=== PATIENT | male | born 1950 | race Caucasian/White ===

== ENCOUNTER 2018-08-12 07:41 | Emergency (ER) | payer MEDICARE ==
[2018-08-12 08:19] LABS: BASOPHILS % (AUTO) 0.3 % (0.0-5.0); EOSINOPHILS % (AUTO) 1.2 % (0.0-8.0); HEMATOCRIT 46.6 % (42-54); LYMPHOCYTES % (AUTO) 29.9 % (21.0-51.0); MEAN CORPUSCULAR HEMOGLOBIN 30.6 pg (27.0-33.0); MEAN CORPUSCULAR HGB CONC 34.5 g/dL (32.0-36.0); MEAN CORPUSCULAR VOLUME 88.6 fL (79-99); MONOCYTES % (AUTO) 6.1 % (3.0-13.0); NEUTROPHILS % (AUTO) 62.5 % (40.0-77.0); NUCLEATED RED BLOOD CELLS 0.1 % (0.0-0.19); PLATELET COUNT (AUTO) 251 K/uL (130-400); RED BLOOD CELL COUNT(AUTO) 5.26 MIL/uL (4.50-6.20); RED CELL DISTRIBUTION WIDTH 13.3 % (11.0-15.5); WHITE BLOOD COUNT (AUTO) 6.5 K/uL (4.8-10.8)
[2018-08-12 08:21] LABS: POTASSIUM 3.8 mmol/L (3.5-5.1)
[2018-08-12 08:28] LABS: ALBUMIN 3.9 g/dL (3.5-5.0); BILIRUBIN,DIRECT 0.2 mg/dL (0.0-0.3); BILIRUBIN,TOTAL 0.7 mg/dL (0.2-1.0); INR 0.98 (0.85-1.15); PARTIAL THROMBOPLASTIN TIME 27.6 SEC (26.3-35.5); PROTHROMBIN TIME 10.3 SEC (9.6-11.6); TOTAL PROTEIN, SERUM 7.2 g/dL (6.0-8.3)
[2018-08-12 08:36] LABS: RAPID GROUP A STREP NEGATIVE (NEGATIVE)
[2018-08-12] MEDS ORDERED: LIDOCAINE HCL 1% 20 ML VIAL ONE (09:04)
[2018-08-12] MEDS ORDERED: ONDANSETRON HCL 4 MG/2 ML VIAL ONE (10:47)
[2018-08-12 12:06] LABS: GLUCOSE, CSF 73 mg/dL (40-70); TOTAL PROTEIN, CSF 48 mg/dL (15-45)
[2018-08-12 12:12] LABS: CSF TUBE NUMBER 1
[2018-08-12 12:13] LABS: APPEARANCE,CSF CLEAR (CLEAR); COLOR,CSF PINK (COLORLESS); RED BLOOD CELL1,CSF 325 CMM (0-0); WHITE BLOOD CELL1,CSF 0 CMM (0-5)
[2018-08-12 12:14] LABS: APPEARANCE2,CSF CLEAR (CLEAR); COLOR2,CSF COLORLESS (COLORLESS); CSF 2ND TUBE NUMBER 4
[2018-08-12] MEDS ORDERED: ACYCLOVIR SODIUM IV SCH (13:15)
[2018-08-12] MEDS ORDERED: SODIUM CHLORIDE 0.9% IV SCH (13:15)
[2018-08-12] MEDS ORDERED: LORAZEPAM 2 MG/ML 1 ML VIAL ONE (13:39)
[2018-08-12] MEDS ORDERED: SODIUM CHLORIDE 0.9% 100 ML IV ONE ×2 (13:42→14:45)
[2018-08-12] MEDS ORDERED: FOSPHENYTOIN SODIUM 500 MG/10ML VIAL IJ ONE (13:43)
[2018-08-12 15:22] LABS: APPEARANCE,URINE Clear (CLEAR); BILIRUBIN,URINE Negative (NEGATIVE); COLOR,URINE Yellow (YELLOW); GLUCOSE, URINE (UA) Negative (NEGATIVE); KETONES,URINE 40 mg/dL (NEGATIVE); LEUKOCYTE ESTERASE ,URINE Negative (NEGATIVE); NITRATE,URINE Negative (NEGATIVE); OCCULT BLOOD,URINE Negative (NEGATIVE); PROTEIN,URINE POS 1+ (NEGATIVE); UROBILINOGEN,URINE 0.2 mg/dL (0.2-1.0)
[2018-08-12 15:29] LABS: AMPHET/METH SCREEN,URINE NEGATIVE (NEGATIVE); BARBITURATE SCREEN, URINE NEGATIVE (NEGATIVE); BENZODIAZEPINES SCREEN,URINE NEGATIVE (NEGATIVE); CANNABINOID SCREEN,URINE NEGATIVE (NEGATIVE); COCAINE SCREEN,URINE NEGATIVE (NEGATIVE); OPIATE SCREEN,URINE NEGATIVE (NEGATIVE); PHENCYCLIDINE SCREEN,URINE NEGATIVE (NEGATIVE)
[2018-08-12 15:55] LABS: AMORPHOUS SEDIMENT,UR Moderate /LPF (None Seen); BACTERIA,URINE None Seen /HPF (None Seen); CALCIUM OXALATE CRYSTALS,UR Few /LPF (None Seen); RBC,URINE None Seen /HPF (0-1); SQUAMOUS EPITHELIAL CELL,UR 0-2 /HPF (0-2); WBC,URINE None Seen /HPF (0-1)
== END 2018-08-12 19:05 | disposition short-term general hospital (02) ==
LOC: EDH 07:41
DX: R41.82 Altered mental status, unspecified (principal); G40.89 Other seizures; E78.5 Hyperlipidemia, unspecified
CPT/HCPCS: 36415; 62270; 70450; 70544; 70547; 70551; 71045; 71046; 80048; 80076; 80305; 81001; 82550; 82945; 84157; 84484; 85025; 85610; 85730; 87071; 87147; 87205; 87210; 87252; 87804 ×2; 87880; 89051 ×2; 93005; 96361; 96365; 96366; 96368; 96375; 99291; G0480; J0133; J2060; J2405; J7030; Q2009